=== PATIENT | female | born 1980 | race Caucasian/White ===

== ENCOUNTER 2024-03-09 04:17 | Emergency (ER) | payer OTHER, SELFPAY ==
[2024-03-09 04:29] VITALS: BP 170/125; PULSE 97; RESP 16; TEMP 36.8; O2SAT 98; BMI 21.9
[2024-03-09] MEDS: OxyCODONE/APAP 5-325 TABLET 2 TAB PO (05:08)
[2024-03-09] MEDS: KETOROLAC 30 MG/ML inj 60 MG IM (05:08)
--- NOTE | 2024-03-09 05:18 | ED_ITS ---
HPI - General Adult General Date Seen: 03/09/24 Chief complaint: Dental/Oral/Mouth Injury/Pain Stated complaint: tooth pain, headache Time Seen by Provider: 03/09/24 04:19 Source: patient Mode of arrival: ambulatory Limitations: no limitations History of Present Illness HPI narrative: Patient is a 43-year-old female who comes in with two weeks of sinus pain, pressure, postnasal drainage. Those symptoms have gotten worse over the past 24 hours. She has also had chipped a lower right molar and is seeing the dentist tomorrow. She has pain that extends for mouth up into her ear and her temples. There is no fevers or chills. Minimal cough. In searching the [employer] system she has had no opiate prescriptions since she got off her chronic pain meds in October. [facility] There is discussion about having or transition to an inpatient CD program but for some reason that did not happen. Related Data Home Medications ?Medication ?Instructions ?Recorded ?Confirmed atomoxetine 80 mg capsule 80 mg PO DAILY 03/09/24 03/09/24 desvenlafaxine succinate 25 mg 25 mg PO DAILY 03/09/24 03/09/24 tablet,extended release 24 hr hydroxyzine pamoate 25 mg capsule 25 mg PO Q6H PRN 03/09/24 03/09/24 (Vistaril) nicotine (polacrilex) 4 mg gum 4 mg buccal Q4-8H PRN 03/09/24 03/09/24 (Nicorette) nicotine 21 mg/24 hr daily 1 patch transdermal DAILY 03/09/24 03/09/24 transdermal patch (Nicoderm CQ) propranolol 10 mg tablet 10 mg PO BID PRN 03/09/24 03/09/24 vilazodone 20 mg tablet (Viibryd) 20 mg PO DAILY 03/09/24 03/09/24 Previous Rx's ?Medication ?Instructions ?Recorded amoxicillin 875 mg-potassium 1 tab PO BID #20 tabs 03/09/24 clavulanate 125 mg tablet oxycodone 5 mg tablet 5 mg PO TID PRN pain #15 tabs 03/09/24 Allergies Allergy/AdvReac Type Severity Reaction Status Date / Time No Known Drug Allergies Allergy Verified 03/09/24 04:33 Review of Systems Narrative: Review of systems is as outlined above otherwise noted to be negative. She was recently started on Strattera for ADHD and Viibryd for depression. [facility] Social History Smoking Status: Former smoker Non-prescribed substance use: denies use Exam Narrative: Exam Narrative: Vitals noted. HEENT: Conjunctiva clear. Tympanic membranes are pearly white bilaterally. Posterior pharynx is clear without erythema or exudate. She has mucopurulent sinus drainage. She has a chipped lower right-sided molar. There is some gingival swelling. Neck is supple without adenopathy, thyromegaly. Lungs: Clear to auscultation in all [place]. No wheezes, rales, rhonchi. Heart: Regular rate and rhythm without murmur. Extremities: No cyanosis or edema. Good distal pulses. Skin: No abnormalities noted of the exposed skin. Neurologic: Awake, alert, fully oriented. Neurologic exam is nonfocal. Const: Vital Signs, click to edit/add: Vital Signs - 24 hr 03/09/24 04:29 Temperature 98.2 F Pulse Rate [Pulse Oximeter] 97 Respiratory Rate 16 [facility] 170[facility]125 H Pulse Oximetry 98 Oxygen Delivery Me thod Room Air Course Course ED Course: Patient was seen and examined. She is given two Percocet tablets and Toradol 60 mg IM with good improvement in her symptoms. Vital Signs Vital signs: Initial Vital Signs Temperature 98.2 F 03/09/24 04:29 Temperature Source Temporal Artery Scan 03/09/24 04:29 Pulse Rate 97 03/09/24 04:29 Respiratory Rate 16 03/09/24 04:29 Blood Pressure 170/125 H 03/09/24 04:29 Blood Pressure Mean 140 H 03/09/24 04:29 Blood Pressure Position Sitting 03/09/24 04:29 Pulse Oximetry 98 03/09/24 04:29 Oxygen Delivery Method Room Air 03/09/24 04:29 Vital Signs Temperature 98.2 F 03/09/24 04:29 Pulse Rate 97 03/09/24 04:29 Respiratory Rate 16 03/09/24 04:29 Blood Pressure 170/125 H 03/09/24 04:29 Pulse Oximetry 98 03/09/24 04:29 Oxygen Delivery Method Room Air 03/09/24 04:29 Temperature 98.2 F 03/09/24 04:29 Pulse Rate 97 03/09/24 04:29 Respiratory Rate 16 03/09/24 04:29 Blood Pressure 170/125 H 03/09/24 04:29 Pulse Oximetry 98 03/09/24 04:29 Oxygen Delivery Method Room Air 03/09/24 04:29 Medications Administered Medications: Discontinued Medications Generic Name Dose Route Start Last Admin Trade Name Freq PRN Reason Stop Dose Admin Ketorolac Tromethamine 60 mg 03/09/24 04:57 03/09/24 05:08 Ketorolac 30 Mg/Ml Inj IM 03/09/24 04:58 60 mg ONCE ONE Administration Oxycodone/Acetaminophen 2 tab 03/09/24 04:57 03/09/24 05:08 Oxycodone/Apap 5-325 Tablet PO 03/09/24 04:58 2 tab ONCE ONE Administration Discharge Plan Discharge Clinical Impression: Fracture of tooth, Acute bacterial sinusitis Patient Disposition: Home, Self-Care Condition: Stable Instructions: Toothache (ED) Additional Instructions: Augmentin 875 mg twice daily for 10 days. Tylenol or Ibuprofen for pain. Oxy codone for refractory pain. Sudafed or Afrin as a decongestant. Get your tooth fixed. Follow up in the clinic if not improving. Prescriptions: New amoxicillin-pot clavulanate 875-125 mg tablet 1 tab PO BID Qty: 20 0RF oxycodone 5 mg tablet 5 mg PO TID PRN (Reason: pain) Qty: 15 0RF No Action hydroxyzine pamoate [Vistaril] 25 mg capsule 25 mg PO Q6H PRN desvenlafaxine succinate 25 mg tablet extended release 24 hr 25 mg PO DAILY atomoxetine 80 mg capsule 80 mg PO DAILY vilazodone [Viibryd] 20 mg tablet 20 mg PO DAILY Rx Instructions: must administer with a meal/food propranolol 10 mg tablet 10 mg PO BID PRN nicotine [Nicoderm CQ] 21 mg/24 hr patch 24 hour 1 patch transdermal DAILY nicotine (polacrilex) [Nicorette] 4 mg gum 4 mg buccal Q4-8H PRN Follow Up/Referrals: Provider,Not a Local [Primary Care Provider] - Stand Alone Forms: [facility] Inst[facility]
== END 2024-03-09 05:10 | disposition home or self-care (01) ==
PROVIDERS: Emergency Provider Family Medicine
DX: J01.90 Acute sinusitis, unspecified (principal); B96.89 Other specified bacterial agents as the cause of diseases classified elsewhere; S02.5XXA Fracture of tooth (traumatic), initial encounter for closed fracture
CPT/HCPCS: 96372; 99281; 99283; 99284; A9270; J1885

== ENCOUNTER 2024-05-15 17:23 | Emergency (ER) | payer OTHER, SELFPAY ==
[2024-05-15 17:33] VITALS: BP 144/117; PULSE 110; RESP 22; TEMP 36.1; O2SAT 100; BMI 24.1
--- NOTE | 2024-05-15 17:42 | CRLHL7_ITS ---
For Patients: As a result of the Century Cures Act, medical imaging exams and procedure reports are released immediately into your electronic medical record. You may view this report before your referring provider. If you have questions, please contact your health care provider. INDICATION: Dyspnea. TECHNIQUE: Chest radiographs, 2 views. COMPARISON: None. FINDINGS: Cardiovascular/Mediastinum: Normal heart size. Unremarkable. Lungs: No focal consolidation. Linear band like opacification of the lungs bilaterally, likely subsegmental atelectasis and/or scarring. Airways: Trachea remains midline. Pleura: No pleural effusions or pneumothorax. Bones: No acute osseous abnormalities. Old healed right midclavicular fracture. Upper abdomen: Unremarkable. IMPRESSION: No acute cardiopulmonary process. Dictated by Jeb Pollard MD @ 05/15/2024 6:39:23 PM (Electronically Signed)
[2024-05-15] MEDS: MORPHINE 4 MG/ML INJ IVP (18:23)
[2024-05-15 18:24] LABS: Lactate Sepsis w/Reflex* 0.8 mmol/L (0.5-1.9)
--- NOTE | 2024-05-15 18:26 | ED.GENADULT ---
HPI - General Adult General Date Seen: 05/15/24 Chief complaint: Shortness of Breath/Dyspnea Stated complaint: Issues with breathing-Right side Time Seen by Provider: 05/15/24 18:02 Source: patient Mode of arrival: ambulatory Limitations: no limitations History of Present Illness HPI narrative: Patient is a 43-year-old woman who presents with right flank and right upper quadrant pain which she says started about 4 days ago with right flank pain and has gotten progressively worse, now wraps around to the front. She notes pain with breathing, pain with moving. She really is not short of breath it is just that it hurts to breathe. She denies cough, fever, nausea, vomiting, lower extremity swelling or pain, recent immobility or travel, hormone replacement of any kind. She has smoked for many years, she switch to vaping nicotine a few years ago. She denies prior history of asthma or COPD. No history of DVT or PE. She says she has a history of prior laparoscopic surgery but denies cholecystectomy. She denies urinary symptoms. No history of similar pain. Related Data Home Medications ?Medication ?Instructions ?Recorded ?Confirmed atomoxetine 80 mg capsule 80 mg PO DAILY 03/09/24 03/09/24 desvenlafaxine succinate 25 mg 25 mg PO DAILY 03/09/24 03/09/24 tablet,extended release 24 hr hydroxyzine pamoate 25 mg capsule 25 mg PO Q6H PRN 03/09/24 03/09/24 (Vistaril) nicotine (polacrilex) 4 mg gum 4 mg buccal Q4-8H PRN 03/09/24 03/09/24 (Nicorette) nicotine 21 mg/24 hr daily 1 patch transdermal DAILY 03/09/24 03/09/24 transdermal patch (Nicoderm CQ) propranolol 10 mg tablet 10 mg PO BID PRN 03/09/24 03/09/24 vilazodone 20 mg tablet (Viibryd) 20 mg PO DAILY 03/09/24 03/09/24 Previous Rx's ?Medication ?Instructions ?Recorded amoxicillin 875 mg-potassium 1 tab PO BID #20 tabs 03/09/24 clavulanate 125 mg tablet oxycodone 5 mg tablet 5 mg PO TID PRN pain #15 tabs 03/09/24 Allergies Allergy/AdvReac Type Severity Reaction Status Date / Time No Known Drug Allergies Allergy Verified 05/15/24 19:56 Review of Systems Status of ROS: Reports: 10 or more systems reviewed and unremarkable except as noted in History and below [facility] Social History Smoking Status: Former smoker Do you use any of these nicotine containing products: Vaping Products How often do you have a drink containing alcohol: never AUDIT-C Alcohol total score: 0 Non-prescribed substance use: denies use Exam Narrative: Exam Narrative: Vital signs reviewed In general, alert, middle-aged woman, she looks uncomfortable. Head: Normocephalic, atraumatic. Eyes: Sclera clear. Pupils equal and reactive. ENT: Mucous membranes moist. Neck: Supple without adenopathy. Heart: Regular rate and rhythm without murmur. Lungs: Clear. No increased work of breathing, crackles or wheezes. Abdomen: Soft, nondistended. She has right upper quadrant tenderness and a positive Polo sign. She has CVA tenderness on the right. Extremities: Well perfused, pulses intact. No significant edema. Neurologic: Alert, conversant. Speech fluent, face symmetric. Moves all extremities equally. Skin: Warm, dry well perfused. Affect: Normal. Const: Vital Signs, click to edit/add: Vital Signs - 24 hr 05/15/24 17:33 05/15/24 18:59 Temperature 96.9 F L 97.5 F L Pulse Rate [Pulse Oximeter] 110 H 92 Respiratory Rate 22 18 Blood Pressure [Ri ght Upper Arm] 144/117 H 139/95 H Pulse Oximetry 100 100 Oxygen Delivery Me thod Room Air Room Air Documenting provider has reviewed patient's vital signs: yes Course Course ED Course: Following initial evaluation, an IV was placed, I ordered Toradol 15 mg and morphine 4 mg for pain control. She had a PA and lateral the chest. I do not see evidence of pneumothorax, pleural effusion, infiltrate or free air. I looked with the bedside ultrasound. Gallbladder is visualized, I do not see obvious stones or wall thickening. She does not seem to have a sonographic Polo's. Patient had an EKG which by my review showed a sinus tachycardia, ventricular rate of 106. No acute ST segment changes, unremarkable T-waves. She does not have an S1 Q3 T3. Her labs were notable for an essentially normal white blood cell count of 11.2, unremarkable diff. D-dimer was mildly elevated for age at 0.96. Metabolic panel was normal, lactate was 0.8, LFTs were normal aside from an AST of 48. Her BNP was normal her lipase was 89. Urinalysis was negative, 0-2 red cells and 0-2 white cells and test was negative. Point of care troponin was 0. She went on have CT scan of the chest based on the elevated D-dimer as well as a CT scan of the abdomen given her abdominal tenderness on exam. My review of her CT chest is of no pulmonary embolism, consolidation, pneumothorax. In the abdomen, I did not see evidence of cholecystitis, diverticulitis, appendicitis, free air. Final radiology reviews are likewise negative aside from tiny right pleural effusion and hepatic steatosis. Results link below. Throughout her time in the ER she made multiple requests for additional pain medication, but declined any nonnarcotic pain medication. Review of her records shows that she apparently had been on chronic narcotics until September of this year and then she has sporadic prescriptions of narcotics from various providers since that time. In light of negative lab and imaging, I discussed with her that symptoms are most likely muscular, that we have ruled out other causes such as pulmonary embolism, pneumonia, cholecystitis, pancreatitis, appendicitis, kidney stone or kidney infection. Symptoms have been present for 4 days, worsened with breathing and movement, I do not think this represents biliary colic. I offered alternative management with muscle relaxers or topical medications, she said that she just wants to go home and declined further care. Would recommend primary care follow-up if not improving over the next couple of days, [id number] medications such as ibuprofen and/or Tylenol, ice may be helpful. Return for worsening conditions such as fever vomiting. Vital Signs Vital signs: Initial Vital Signs Temperature 96.9 F L 05/15/24 17:33 Temperature Source Temporal Artery Scan 05/15/24 17:33 Pulse Rate 110 H 05/15/24 17:33 Pulse Rhythm Regular 05/15/24 17:33 Pulse Strength 3+ Normal 05/15/24 17:33 Respiratory Rate 22 05/15/24 17:33 Respiratory Depth Normal 05/15/24 17:33 Blood Pressure 144/117 H 05/15/24 17:33 Blood Pressure Mean 126 H 05/15/24 17:33 Blood Pressure Position Sitting 12/10/24 17:33 Pulse Oximetry 100 05/15/24 17:33 Oxygen Delivery Method Room Air 05/15/24 17:33 Vital Signs Temperature 96.9 F L 05/15/24 17:33 Pulse Rate 110 H 05/15/24 17:33 Respiratory Rate 22 05/15/24 17:33 Blood Pressure 144/117 H 05/15/24 17:33 Pulse Oximetry 100 05/15/24 17:33 Oxygen Delivery Method Room Air 05/15/24 17:33 Temperature 97.5 F L 05/15/24 18:59 Pulse Rate 92 05/15/24 18:59 Respiratory Rate 18 05/15/24 18:59 Blood Pressure 139/95 H 05/15/24 18:59 Pulse Oximetry 100 05/15/24 18:59 Oxygen Delivery Method Room Air 05/15/24 18:59 Medications Administered Medications: Discontinued Medications Generic Name Dose Route Start Last Admin Trade Name Freq PRN Reason Stop Dose Admin Sodium Chloride 500 mls @ 500 mls/hr 05/15/24 18:06 05/15/24 19:24 0.9 % Sodium Chloride 500 Ml IV 05/15/24 19:05 Infused .Q1H ONE Infusion Ketorolac Tromethamine 15 mg 05/15/24 18:06 05/15/24 18:29 Ketorolac 15 Mg/Ml Inj IVP 05/15/24 18:07 15 mg ONCE ONE Administration Morphine Sulfate 4 mg 05/15/24 18:07 05/15/24 18:23 Morphine 4 Mg/Ml Inj IVP 05/15/24 18:08 4 mg ONCE ONE Administration Medical Decision Making Lab Data Labs: Lab Results 05/15/24 05/15/24 05/15/24 Range/Units 17:43 18:12 18:12 WBC 11.21 H (4.50-11.00) K/uL RBC 4.73 (4.00-5.20) m/uL Hgb 14.3 (12.0-16.0) gm/dL Hct 44.3 (33.0-51.0) % MCV 94 (80-100) fL MCH 30 (26-34) pg MCHC 32 (32-36) gm/dL RDW Coeff of [place] 12.4 (11.5-15.5) % Plt Count 423 (140-440) K/uL Neut % (Auto) 70.5 (42.0-72.0) % Lymph % (Auto) 19.2 L (20-44) % [facility] % (Auto) 4.1 (0.0-11.0) % Eos % (Auto) 4.8 (0.0-7.0) % Baso % (Auto) 1.2 (0.0-3.0) % Neut # (Auto) 7.90 H (1.7-7.0) K/uL Lymph # (Auto) 2.20 (0.90-2.90) K/uL [facility] # (Auto) 0.50 (0.00-0.90) K/UL Eos # (Auto) 0.50 (0.00-0.50) K/uL Baso # (Auto) 0.10 (0.00-0.30) K/uL Abs Immat Gran (auto) 0.00 (0.00-0.30) K/uL Imm/Tot Granulo (auto) 0.2 % D-Dimer Quant (PE/DVT) 0.96 H (0.00-0.50) ug/ml Sodium 145 (135-149) mmol/L Potassium 3.7 (3.6-5.1) mmol/L Chloride 106 (96-114) mmol/L Carbon Dioxide 28 (20-32) mmol/L Anion Gap 11 (7-15) mEq/L BUN 7 (5-24) mg/dL Creatinine 0.6 (0.5-1.5) mg/dL Estimated Creat Clear 118.78 Estimated GFR 115 ml/min Glucose 99 (60-115) mg/dL Lactate 0.8 (0.5-1.9) mmol/L Calcium 9.2 (8.4-10.6) mg/dL Total Bilirubin 0.3 Cancelled (0.1-1.5) mg/dL Direct Bilirubin 0.3 (0.0-0.5) mg/dL AST (12-35) U/L ALT (4-35) U/L Alkaline Phosphatase (40-150) U/L NT-Pro-B Natriuret Pep pg/mL Total Protein (6.0-8.3) g/dL Albumin (3.3-5.0) g/dL Lipase (23-300) U/L Urine Color (Yellow) Urine Appearance (Clear) Urine pH (5.0-8.5) Ur Specific [place] (1.000-1.030) Urine Protein (Negative) Urine Glucose (UA) (Negative) Urine Ketones (Negative) Urine Blood (Negative) Urine Nitrite (Negative) Urine Bilirubin (Negative) Urine Urobilinogen (0.2-1.0) Ur Leukocyte Esterase (Negative) Urine RBC (0-2) Urine WBC (0-5) Ur Squamous Epith Cells (None-Few) Urine Bacteria (None) Urine HCG, Qual (Negative) POC Troponin I 0.00 L (0.01-0.04) ng/ml 05/15/24 05/15/24 05/15/24 Range/Units 18:12 18:12 18:12 WBC (4.50-11.00) K/uL RBC (4.00-5.20) m/uL Hgb (12.0-16.0) gm/dL Hct (33.0-51.0) % MCV (80-100) fL MCH (26-34) pg MCHC (32-36) gm/dL RDW Coeff of Devante (11.5-15.5) % Plt Count (140-440) K/uL Neut % (Auto) (42.0-72.0) % Lymph % (Auto) (20-44) % [facility] % (Auto) (0.0-11.0) % Eos % (Auto) (0.0-7.0) % Baso % (Auto) (0.0-3.0) % Neut # (Auto) (1.7-7.0) K/uL Lymph # (Auto) (0.90-2.90) K/uL [facility] # (Auto) (0.00-0.90) K/UL Eos # (Auto) (0.00-0.50) K/uL Baso # (Auto) (0.00-0.30) K/uL Abs Immat Gran (auto) (0.00-0.30) K/uL Imm/Tot Granulo (auto) % D-Dimer Quant (PE/DVT) (0.00-0.50) ug/ml Sodium (135-149) mmol/L Potassium (3.6-5.1) mmol/L Chloride (96-114) mmol/L Carbon Dioxide (20-32) mmol/L Anion Gap (7-15) mEq/L BUN (5-24) mg/dL Creatinine (0.5-1.5) mg/dL Estimated Creat Clear Estimated GFR ml/min Glucose (60-115) mg/dL Lactate (0.5-1.9) mmol/L Calcium (8.4-10.6) mg/dL Total Bilirubin (0.1-1.5) mg/dL Direct Bilirubin Cancelled (0.0-0.5) mg/dL AST 48 H Cancelled (12-35) U/L ALT 28 Cancelled (4-35) U/L Alkaline Phosphatase 92 (40-150) U/L NT-Pro-B Natriuret Pep pg/mL Total Protein (6.0-8.3) g/dL Albumin (3.3-5.0) g/dL Lipase (23-300) U/L Urine Color (Yellow) Urine Appearance (Clear) Urine pH (5.0-8.5) Ur Specific [place] (1.000-1.030) Urine Protein (Negative) Urine Glucose (UA) (Negative) Urine Ketones (Negative) Urine Blood (Negative) Urine Nitrite (Negative) Urine Bilirubin (Negative) Urine Urobilinogen (0.2-1.0) Ur Leukocyte Esterase (Negative) Urine RBC (0-2) Urine WBC (0-5) Ur Squamous Epith Cells (None-Few) Urine Bacteria (None) Urine HCG, Qual (Negative) POC Troponin I (0.01-0.04) ng/ml 05/15/24 05/15/24 05/15/24 Range/Units 18:12 18:12 18:12 WBC (4.50-11.00) K/uL RBC (4.00-5.20) m/uL Hgb (12.0-16.0) gm/dL Hct (33.0-51.0) % MCV (80-100) fL MCH (26-34) pg MCHC (32-36) gm/dL RDW Coeff of Devante (11.5-15.5) % Plt Count (140-440) K/uL Neut % (Auto) (42.0-72.0) % Lymph % (Auto) (20-44) % [facility] % (Auto) (0.0-11.0) % Eos % (Auto) (0.0-7.0) % Baso % (Auto) (0.0-3.0) % Neut # (Auto) (1.7-7.0) K/uL Lymph # (Auto) (0.90-2.90) K/uL [facility] # (Auto) (0.00-0.90) K/UL Eos # (Auto) (0.00-0.50) K/uL Baso # (Auto) (0.00-0.30) K/uL Abs Immat Gran (auto) (0.00-0.30) K/uL Imm/Tot Granulo (auto) % D-Dimer Quant (PE/DVT) (0.00-0.50) ug/ml Sodium (135-149) mmol/L Potassium (3.6-5.1) mmol/L Chloride (96-114) mmol/L Carbon Dioxide (20-32) mmol/L Anion Gap (7-15) mEq/L BUN (5-24) mg/dL Creatinine (0.5-1.5) mg/dL Estimated Creat Clear Estimated GFR ml/min Glucose (60-115) mg/dL Lactate (0.5-1.9) mmol/L Calcium (8.4-10.6) mg/dL Total Bilirubin (0.1-1.5) mg/dL Direct Bilirubin (0.0-0.5) mg/dL AST (12-35) U/L ALT (4-35) U/L Alkaline Phosphatase Cancelled (40-150) U/L NT-Pro-B Natriuret Pep < 20 Cancelled pg/mL Total Protein 8.1 Cancelled (6.0-8.3) g/dL Albumin 4.9 (3.3-5.0) g/dL Lipase (23-300) U/L Urine Color (Yellow) Urine Appearance (Clear) Urine pH (5.0-8.5) Ur Specific [place] (1.000-1.030) Urine Protein (Negative) Urine Glucose (UA) (Negative) Urine Ketones (Negative) Urine Blood (Negative) Urine Nitrite (Negative) Urine Bilirubin (Negative) Urine Urobilinogen (0.2-1.0) Ur Leukocyte Esterase (Negative) Urine RBC (0-2) Urine WBC (0-5) Ur Squamous Epith Cells (None-Few) Urine Bacteria (None) Urine HCG, Qual (Negative) POC Troponin I (0.01-0.04) ng/ml 05/15/24 05/15/24 05/15/24 Range/Units 18:12 18:12 Unknown WBC (4.50-11.00) K/uL RBC (4.00-5.20) m/uL Hgb (12.0-16.0) gm/dL Hct (33.0-51.0) % MCV (80-100) fL MCH (26-34) pg MCHC (32-36) gm/dL RDW Coeff of Devante (11.5-15.5) % Plt Count (140-440) K/uL Neut % (Auto) (42.0-72.0) % Lymph % (Auto) (20-44) % [facility] % (Auto) (0.0-11.0) % Eos % (Auto) (0.0-7.0) % Baso % (Auto) (0.0-3.0) % Neut # (Auto) (1.7-7.0) K/uL Lymph # (Auto) (0.90-2.90) K/uL [facility] # (Auto) (0.00-0.90) K/UL Eos # (Auto) (0.00-0.50) K/uL Baso # (Auto) (0.00-0.30) K/uL Abs Immat Gran (auto) (0.00-0.30) K/uL Imm/Tot Granulo (auto) % D-Dimer Quant (PE/DVT) (0.00-0.50) ug/ml Sodium (135-149) mmol/L Potassium (3.6-5.1) mmol/L Chloride (96-114) mmol/L Carbon Dioxide (20-32) mmol/L Anion Gap (7-15) mEq/L BUN (5-24) mg/dL Creatinine (0.5-1.5) mg/dL Estimated Creat Clear Estimated GFR ml/min Glucose (60-115) mg/dL Lactate (0.5-1.9) mmol/L Calcium (8.4-10.6) mg/dL Total Bilirubin (0.1-1.5) mg/dL Direct Bilirubin (0.0-0.5) mg/dL AST (12-35) U/L ALT (4-35) U/L Alkaline Phosphatase (40-150) U/L NT-Pro-B Natriuret Pep pg/mL Total Protein (6.0-8.3) g/dL Albumin Cancelled (3.3-5.0) g/dL Lipase 89 Cancelled (23-300) U/L Urine Color Yellow (Yellow) Urine Appearance Clear (Clear) Urine pH 7.0 (5.0-8.5) Ur Specific [place] 1.015 (1.000-1.030) Urine Protein Negative (Negative) Urine Glucose (UA) Negative (Negative) Urine Ketones Negative (Negative) Urine Blood Trace-intact A (Negative) Urine Nitrite Negative (Negative) Urine Bilirubin Negative (Negative) Urine Urobilinogen 0.2 (0.2-1.0) Ur Leukocyte Esterase Negative (Negative) Urine RBC 0-2 (0-2) Urine WBC 0-2 (0-5) Ur Squamous Epith Cells None (None-Few) Urine Bacteria None (None) Urine HCG, Qual Negative (Negative) POC Troponin I (0.01-0.04) ng/ml Imaging Data Chest x-ray: Attestation: I have reviewed the pertinent imaging results. Radiologist's impression: Patient: Juliet Monet MR#: [id number] : 1980 Acct:[id number] Loc: ED Service Date: 05/15/[address]: Ordering Physician: Heriberto Rajput M.D. Date of Service: 05/15/24 Procedure(s): XR chest 2V Accession Number(s): [id number] cc: Provider,Not a Local; Heriberto Rajput M.D.~ For Patients: As a result of the 21st Century Cures Act, medical imaging exams and procedure reports are released immediately into your electronic medical record. You may view this report before your referring provider. If you have questions, please contact your health care provider. INDICATION: Dyspnea. TECHNIQUE: Chest radiographs, 2 views. COMPARISON: None. FINDINGS: Cardiovascular/Mediastinum: Normal heart size. Unremarkable. Lungs: No focal consolidation. Linear band like opacification of the lungs bilaterally, likely subsegmental atelectasis and/or scarring. Airways: Trachea remains midline. Pleura: No pleural effusions or pneumothorax. Bones: No acute osseous abnormalities. Old healed right midclavicular fracture. Upper abdomen: Unremarkable. IMPRESSION: No acute cardiopulmonary process. Dictated by Jeb Pollard MD @ 05/15/2024 6:39:[address] scan - abdomen: Attestation: I have reviewed the pertinent imaging results. Radiologist's impression: Patient: JULIET MONET Facility: [facility] RIS Site . Site : 1980 Study: CT-Abdomen/Pelvis W/ 95CC ISOVUE 370-05/15/2024 8:05:59 PM Ordering Physician: Leonel Kellogg Final Report: INDICATION: Right flank pain, right upper quadrant tenderness. TECHNIQUE: CT of the abdomen and pelvis acquired with 95 cc Isovue 370 IV contrast. Coronal and sagittal reconstructions. COMPARISON: None. FINDINGS: Lower chest: Small right pleural effusion. Liver: Diffuse hepatic steatosis. No suspicious masses. Gallbladder and bile ducts: Unremarkable. No biliary dilation. Spleen: Unremarkable. Pancreas: Unremarkable. Adrenal glands: Unremarkable. Kidneys, Ureters, and Bladder: Symmetric enhancement. No hydronephrosis or obstructing stones. No bladder wall thickening. Reproductive organs: Uterus is unremarkable. Simple appearing dominant follicle in the right ovary. GI tract/Peritoneum: No small bowel dilation. Moderate amount of stool throughout the colon. Few colonic diverticula without evidence of diverticulitis. Negative appendix. No intraperitoneal free air or fluid. Vasculature: Abdominal aorta is normal in caliber. Mesenteric arteries appear patent. Circumaortic left renal vein. Lymph nodes: No lymphadenopathy. Abdominal Wall: Unremarkable. Bones: Unremarkable for age. IMPRESSION: 1. No acute findings in the abdomen or pelvis. 2. Diffuse hepatic steatosis. 3. Small right pleural effusion. Discharge Plan Discharge Clinical Impression: Right flank pain Patient Disposition: Home, Self-Care Condition: Stable Instructions: Flank Pain (ED) Additional Instructions: You can try combination of ibuprofen 400 mg plus Tylenol 1000 mg for pain. Ice may be helpful as well. Your test today are all normal and there is no evidence of pneumonia, blood clot, gallbladder disease, urinary tract infection, kidney stone or pancreatitis. Please follow-up with your primary doctor if not improving over the next few days. Return any time for new symptoms such as vomiting, fevers, is etcetera. Prescriptions: No Action hydroxyzine pamoate [Vistaril] 25 mg capsule 25 mg PO Q6H PRN desvenlafaxine succinate 25 mg tablet extended release 24 hr 25 mg PO DAILY atomoxetine 80 mg capsule 80 mg PO DAILY vilazodone [Viibryd] 20 mg tablet 20 mg PO DAILY Rx Instructions: must administer with a meal/food propranolol 10 mg tablet 10 mg PO BID PRN nicotine [Nicoderm CQ] 21 mg/24 hr patch 24 hour 1 patch transdermal DAILY nicotine (polacrilex) [Nicorette] 4 mg gum 4 mg buccal Q4-8H PRN amoxicillin-pot clavulanate 875-125 mg tablet 1 tab PO BID Qty: 20 0RF oxycodone 5 mg tablet 5 mg PO TID PRN (Reason: pain) Qty: 15 0RF Follow Up/Referrals: Provider,Not a Local [Primary Care Provider] - Stand Alone Forms: MyHealth Info Instructions
[2024-05-15 18:29] LABS: Basophils Percent Auto 1.2 % (0.0-3.0); Eosinophils Percent Auto 4.8 % (0.0-7.0); Hematocrit 44.3 % (33.0-51.0); Hemoglobin* 14.3 gm/dL (12.0-16.0); Immature Granulocytes Pct Auto 0.2 %; Lymphocytes Percent Auto 19.2 % (20-44); Mean Corpuscular HGB Conc 32 gm/dL (32-36); Mean Corpuscular Hemoglobin 30 pg (26-34); Mean Corpuscular Volume 94 fL (80-100); Monocytes Percent Auto 4.1 % (0.0-11.0); Neutrophils Percent Auto 70.5 % (42.0-72.0); Platelet Count* 423 K/uL (140-440); RDW Coefficient of Variation % 12.4 % (11.5-15.5); Red Blood Count 4.73 m/uL (4.00-5.20); White Blood Count* 11.21 K/uL (4.50-11.00)
[2024-05-15] MEDS: KETOROLAC 15 MG/ML inj IVP (18:29)
[2024-05-15] MEDS: 0.9 % SODIUM CHLORIDE 500 ML 500 ML IV (18:31)
[2024-05-15 18:40] LABS: Appearance Urine Clear (Clear); Bilirubin Urine Negative (Negative); Blood Urine Trace-intact (Negative); Color Urine Yellow (Yellow); Glucose Urine Negative (Negative); Ketones Urine Negative (Negative); Specific Gravity Urine 1.015 (1.000-1.030)
[2024-05-15 18:41] LABS: Slide Review Reflex No
[2024-05-15 18:41] LABS: Leukocyte Esterase Urine Negative (Negative); Nitrite Urine Negative (Negative); Protein Urine Negative (Negative); Urobilinogen Urine 0.2 (0.2-1.0)
[2024-05-15 18:42] LABS: Chloride* 106 mmol/L (96-114); Potassium* 3.7 mmol/L (3.6-5.1); Sodium* 145 mmol/L (135-149)
[2024-05-15 18:45] LABS: Blood Urea Nitrogen* 7 mg/dL (5-24); Creatinine* 0.6 mg/dL (0.5-1.5); Est. Creatinine Clearance* 118.78; Estimated Glomerular Filt Rate 115 ml/min
[2024-05-15 18:46] LABS: Anion Gap 11 mEq/L (7-15); Calcium* 9.2 mg/dL (8.4-10.6); Carbon Dioxide* 28 mmol/L (20-32); Glucose* 99 mg/dL (60-115)
[2024-05-15 18:49] LABS: RBC Urine 0-2 (0-2); WBC Urine 0-2 (0-5)
[2024-05-15 18:54] LABS: D Dimer Quantitative* 0.96 ug/ml (0.00-0.50)
[2024-05-15 18:59] VITALS: BP 139/95; PULSE 92; RESP 18; TEMP 36.4; O2SAT 100
[2024-05-15 19:07] LABS: Albumin* 4.9 g/dL (3.3-5.0)
--- NOTE | 2024-05-15 19:09 | CRLHL7_ITS ---
For Patients: As a result of the Century Cures Act, medical imaging exams and procedure reports are released immediately into your electronic medical record. You may view this report before your referring provider. If you have questions, please contact your health care provider. INDICATION: Right flank pain, pleurisy, elevated D-dimer. TECHNIQUE: CT of the chest acquired with 95 cc Isovue 370 IV contrast according to the PE protocol. Coronal and sagittal reconstructions. COMPARISON: Same day chest radiograph. FINDINGS: Cardiovascular structures: Normal heart size. Normal caliber thoracic aorta and central pulmonary arteries. No acute pulmonary embolism identified. Mediastinum and gigi: No pathologically enlarged lymph nodes. No pericardial effusion. Lungs and pleura: Small right pleural effusion. Mild bibasilar dependent atelectasis. No focal consolidation or pneumothorax. No suspicious pulmonary nodules. No central endobronchial lesion or significant bronchial wall thickening. Chest wall: No mass or adenopathy. Upper abdomen: Please refer to separate report. Bones: Old right clavicle fracture. IMPRESSION: 1. Negative for acute pulmonary embolism. 2. Small right pleural effusion. Please note that all CT scans at this facility use dose modulation, iterative reconstruction, and/or weight-based dosing when appropriate to reduce radiation dose to as low as reasonably achievable. Dictated by Althea Oglesby MD @ 05/15/2024 9:06:38 PM (Electronically Signed)
--- NOTE | 2024-05-15 19:09 | CRLHL7_ITS ---
For Patients: As a result of the Century Cures Act, medical imaging exams and procedure reports are released immediately into your electronic medical record. You may view this report before your referring provider. If you have questions, please contact your health care provider. INDICATION: Right flank pain, right upper quadrant tenderness. TECHNIQUE: CT of the abdomen and pelvis acquired with 95 cc Isovue 370 IV contrast. Coronal and sagittal reconstructions. COMPARISON: None. FINDINGS: Lower chest: Small right pleural effusion. Liver: Diffuse hepatic steatosis. No suspicious masses. Gallbladder and bile ducts: Unremarkable. No biliary dilation. Spleen: Unremarkable. Pancreas: Unremarkable. Adrenal glands: Unremarkable. Kidneys, Ureters, and Bladder: Symmetric enhancement. No hydronephrosis or obstructing stones. No bladder wall thickening. Reproductive organs: Uterus is unremarkable. Simple appearing dominant follicle in the right ovary. GI tract/Peritoneum: No small bowel dilation. Moderate amount of stool throughout the colon. Few colonic diverticula without evidence of diverticulitis. Negative appendix. No intraperitoneal free air or fluid. Vasculature: Abdominal aorta is normal in caliber. Mesenteric arteries appear patent. Circumaortic left renal vein. Lymph nodes: No lymphadenopathy. Abdominal Wall: Unremarkable. Bones: Unremarkable for age. IMPRESSION: 1. No acute findings in the abdomen or pelvis. 2. Diffuse hepatic steatosis. 3. Small right pleural effusion. Please note that all CT scans at this facility use dose modulation, iterative reconstruction, and/or weight-based dosing when appropriate to reduce radiation dose to as low as reasonably achievable. Dictated by Althea Oglesby MD @ 05/15/2024 9:16:20 PM (Electronically Signed)
[2024-05-15 19:10] LABS: Alanine Aminotransferase* 28 U/L (4-35); Alkaline Phosphatase* 92 U/L (40-150); Aspartate Amino Transferase* 48 U/L (12-35); Bilirubin Direct* 0.3 mg/dL (0.0-0.5); Bilirubin Total* 0.3 mg/dL (0.1-1.5); Total Protein* 8.1 g/dL (6.0-8.3)
[2024-05-15 19:11] LABS: Lipase* 89 U/L (23-300)
[2024-05-15 19:24] LABS: NT Pro B Type NatriureticPept* < 20 pg/mL
[2024-05-15 19:46] LABS: Ur HCG Qualitative* Negative (Negative)
== END 2024-05-15 21:28 | disposition home or self-care (01) ==
PROVIDERS: Family Medicine; Emergency Provider Emergency Medicine
DX: R10.9 Unspecified abdominal pain (principal)
CPT/HCPCS: 36415; 71046; 71275; 74177; 80048; 80076; 81001; 81025; 83605; 83690; 83880; 84484; 85025; 85379; 93005; 96374; 96375; 99284; 99285; J1885; J2270; J7030; Q9967